=== PATIENT | male | born 1950 | race Native Hawaiian/Other Pacific Islander ===

== ENCOUNTER 2017-07-21 17:26 | Emergency (ER) | payer MEDICARE, OTHER ==
[2017-07-21 17:26] VITALS: BMI 29.7
[2017-07-21 17:29] VITALS: BP 149/77; PULSE 89; RESP 18; TEMP 98.1; O2SAT 100
[2017-07-21] MEDS ORDERED: Lidocaine 2% Inj (20ml) IJ STA (17:49)
[2017-07-21] MEDS ORDERED: TDAP Vaccine 0.5 mL Syr IM ONE (17:52)
--- NOTE | 2017-07-21 17:53 | ED PDOC ---
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 Pt reports, " machine fell on top of my leg". Laceration noted to Right lower leg. Otherwise, pt denies obvious deformity, weakness, sensory or vascular deficits to Right leg, denies any other active complaints related to injury. Appears comfortable in bed, not in any apparent distress. Past Medical History - Provider Review Nursing Documentation Reviewed: Yes - Travel History Have you recently traveled outside [place] w/in the past 3 mons?: No - Tetanus Immunization Tetanus Immunization: >10 years Ago - Past Medical History Past Medical History: No Previous - Psychiatric Hx Substance Use: No - Past Surgical History Past Surgical History: No Previous - Anesthesia Hx Anesthesia: No Hx Anesthesia Reactions: No Hx Malignant Hyperthermia: No - Suicidal Assessment Feels Threatened In Home Enviroment: No Family/Social History - Physician Review Nursing Documentation Reviewed: Yes Family/Social History: No Known Family HX Smoking Status: Never Smoked Hx Alcohol Use: No Hx Substance Use: No Hx Substance Use Treatment: No Allergies/Home Meds Allergies/Adverse Reactions: Allergies No Known Allergies Allergy (Verified 07/21/17 17:31) per patient Review of Systems - Physician Review All systems were reviewed & negative as marked: Yes - Review of Systems Constitutional: Normal Musculoskeletal: Arthralgias Skin: Laceration Neurological: Normal Endocrine: Normal Hemo/Lymphatic: Normal Psychiatric: Normal Physical Exam Vital Signs Reviewed: Yes Vital Signs Temp Pulse Resp BP Pulse Ox 07/21/17 17:28 98.1 F 89 18 149/77 100 Temperature: Afebrile Blood Pressure: Normal Pulse: Regular Respiratory Rate: Normal Appearance: Positive for: Well-Appearing, Non-Toxic, Comfortable Pain Distress: Mild Mental Status: Positive for: Alert and Oriented X 3 - Systems Exam Head: Present: Atraumatic, Normocephalic Lower Extremity: Present: NORMAL PULSES, Normal ROM, Tenderness (mid tibia, left ), Neurovascularly Intact (LLE), Capillary Refill < 2 s. No: Swelling, Deformity Neurological: Present: GCS=15, Speech Normal, Motor Func Grossly Intact, Normal Sensory Function, Norm Deep Tendon Reflexes Skin: Present: Warm, Dry, Normal Color, Laceration ((+)Right mid tibia laceration 8cm length irregular through dermis, mild bloody oozing noted. No wound FB, mild skin contusion. no wound draining.) Medical Decision Making ED Course and Treatment: 07/21/17 19:30 On re-evaluation, pt is afebrile, hemodynamicaly stable. Non-toxic. Ambulatory in ED with stable gait. RLE: complex laceration repaired w/sutures. no neurovascular deficits post- procedure. FAROM. Wound covered with abx cream topically and sterile dressing. xray review (-) fx or dislocation, no wound FB noted. Pt denies any other complaints c/w injury. Abx orally, tetanus given. Pt advised on wound care. Ref. to f/u with PMD in 2 days for re-eval. return to ED if any worsening or new changes. - RAD Interpretation Narrative RAD Interpretations (Text): 07/21/17 19:29 (-) acute fx or dislocation, no wound FB Radiology Orders: 07/21/17 17:49 TIBIA FIBULA RIGHT [RAD] Stat - Medication Orders Current Medication Orders: Discontinued Medications Amoxicillin/Clavulanate Potassium (Augmentin 875 Mg-125 Mg Tab) 1 tab PO STAT STA PRN Reason: Protocol Stop: 07/21/17 19:26 Last Admin: 07/21/17 19:42 Dose: 1 tab Lidocaine HCl (Lidocaine 2% 20ml Vial) 10 ml IJ ONCE STA Stop: 07/21/17 17:50 Tetanus/Reduced Diphtheria/Acell Pertussis (Boostrix Vaccine Inj) 0.5 ml IM .ONCE ONE Stop: 07/21/17 17:53 Last Admin: 07/21/17 18:08 Dose: 0.5 ml [facility] Immunization Data Document 07/21/17 18:08 LENARD (Rec: 07/21/17 18:09 LENARD [id number]) Immunization Data Vaccine Lot Number [id number] Vaccine Expiration Date 05/09/19 Site Given Left Deltoid Disposition/Present on Arrival - Present on Arrival Any Indicators Present on Arrival: No History of DVT/PE: No History of Uncontrolled Diabetes: No Urinary Catheter: No History of Decub. Ulcer: No History Surgical Site Infection Following: None - Disposition Have Diagnosis and Disposition been Completed?: Yes Diagnosis: Leg laceration, Contusion Disposition: HOME/ ROUTINE Disposition Time: 19:20 Patient Plan: Discharge Condition: STABLE Discharge Instructions (ExitCare): Care For Your Stitches (ED), Laceration (ED) , Contusion in Adults (ED) Additional Instructions: Keep Right leg elevated for 2-3 days, avoid prolong walking Avery wrap over the laceration for 2-3 days Clean wound with peroxide, covered with antibiotic cream daily Suture removal in 10 days Follow up with PMD in 2 days for wound check. Return to ED at any time if any worsening or new changes, sign of infection, or any other changes. Prescriptions: Amoxicillin/Clavulanate [Augmentin 875 MG-125 MG] 1 tab PO BID #14 tab Bacitracin OINT 1 applic TP BID #1 tube traMADol [Ultram] 50 mg PO TID #7 tab Referrals: Jermaine Pablo MD [Primary Care Provider] - Follow up with primary Forms: [employer] (Amharic), WORK NOTE Laceration - Laceration Repair Right lower leg Wound Length (In cm): 3.15 in Description Of Wound: Irregular, Contused Tissue (slight) Wound Cleansed With: Betadine Anesthesia: Lidocaine 2% Wound Examination: Irrigated With Saline, No FB With Wound Exploration, No Tendon Injury With Wound Exploration Wound Closure: Suture (#16) Suture Technique And Material Used: Nylon (3-0), Chromic (3-0#6) Wound Complexity: Complex
[2017-07-21] MEDS ORDERED: Amoxicillin-Clav 875-125 mg Tab PO STA (19:25)
--- NOTE | 2017-07-22 07:51 | RAD ---
PROCEDURE: Radiographs of the right tibia and fibula. HISTORY: injury COMPARISON: None available. TECHNIQUE: Frontal and lateral views obtained. FINDINGS: BONES: No fracture or destructive lesion. JOINT SPACES: Unremarkable. OTHER FINDINGS: Circumferential deformity of the soft tissues of the distal leg is identified potentially from a sock or other extrinsically compressing device appears small radiodensities are related to the medial soft tissues at this level and may be artifactual or related to the site. Clinically correlate. IMPRESSION: No fracture or suspicious lytic or blastic changes seen related to the right tibia or fibula. Soft tissue densities the medial distal soft tissues may related to a sock or other compressing device. Clinically correlate.
== END 2017-07-21 19:49 | disposition home or self-care (01) ==
LOC: ED 17:26
DX: S81.811A Laceration without foreign body, right lower leg, initial encounter (principal); T14.8 Other injury of unspecified body region; W20.8XXA Other cause of strike by thrown, projected or falling object, initial encounter; Z23 Encounter for immunization

== ENCOUNTER 2018-02-04 03:17 | Emergency (ER) | payer MEDICARE ==
--- NOTE | 2018-02-04 03:22 | ED PDOC ---
Arrival/HPI - General Time Seen by Provider: 02/04/18 03:18 Historian: Patient - History of Present Illness Narrative History of Present Illness (Text): 02/04/18 03:19 Taisha Cosme is a 67 year old male who presents to the Emergency department status post rapid response for syncope. 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 Rapid Response was called and patient was subsequently transferred to the Emergency room. Patient noted to have low blood pressure earlier during the episode, which has now improved. Patient notes he had a tooth extraction performed yesterday. Patient denies any fever, chills, chest pain, shortness of breath, nausea, vomiting, neck pain, headache, dizziness, or any other complaints. Symptom Onset: Sudden Symptom Course: Unchanged Activities at Onset: Light Context: Work Past Medical History - Provider Review Nursing Documentation Reviewed: Yes - Tetanus Immunization Tetanus Immunization: >10 years Ago - Past Medical History Past Medical History: No Previous - Psychiatric Hx Substance Use: No - Past Surgical History Past Surgical History: No Previous - Anesthesia Hx Anesthesia: No Hx Anesthesia Reactions: No Hx Malignant Hyperthermia: No - Suicidal Assessment Feels Threatened In Home Enviroment: No Family/Social History - Physician Review Nursing Documentation Reviewed: Yes Family/Social History: Unknown Family HX Smoking Status: Never Smoked Hx Alcohol Use: No Hx Substance Use: No Hx Substance Use Treatment: No Allergies/Home Meds Allergies/Adverse Reactions: Allergies No Known Allergies Allergy (Verified 02/04/18 03:22) per patient Home Medications: Home Meds Medication Instructions Recorded Confirmed No Known Home Med 02/04/18 02/04/18 Review of Systems - Physician Review All systems were reviewed & negative as marked: Yes - Review of Systems Constitutional: Normal. absent: Fevers Eyes: Normal ENT: Normal Respiratory: Normal. absent: SOB, Cough Cardiovascular: Syncope. absent: Chest Pain Gastrointestinal: Normal. absent: Abdominal Pain, Diarrhea, Nausea, Vomiting Genitourinary Male: Normal. absent: Dysuria, Frequency, Hematuria, Urinary Output Changes Musculoskeletal: Normal. absent: Back Pain, Neck Pain Skin: Normal. absent: Rash Neurological: Normal. absent: Headache, Dizziness Endocrine: Normal Hemo/Lymphatic: Normal Psychiatric: Normal Physical Exam Vital Signs Temp Pulse Resp BP Pulse Ox 02/04/18 03:20 97.7 F 68 18 130/76 100 Temperature: Afebrile Blood Pressure: Normal Pulse: Regular Respiratory Rate: Normal Appearance: Positive for: Well-Appearing, Non-Toxic, Comfortable Pain Distress: None Mental Status: Positive for: Alert and Oriented X 3 - Systems Exam Head: Present: Atraumatic, Normocephalic Pupils: Present: PERRL Extroacular Muscles: Present: EOMI Conjunctiva: Present: Normal Mouth: Present: Moist Mucous Membranes Neck: Present: Normal Range of Motion Respiratory/Chest: Present: Clear to Auscultation, Good Air Exchange. No: Respiratory Distress, Accessory Muscle Use Cardiovascular: Present: Regular Rate and Rhythm, Normal S1, S2. No: Murmurs Abdomen: No: Tenderness, Distention, Peritoneal Signs Back: Present: Normal Inspection Upper Extremity: Present: Normal Inspection. No: Cyanosis, Edema Lower Extremity: Present: Normal Inspection. No: Edema Neurological: Present: GCS=15, CN II-XII Intact, Speech Normal Skin: Present: Warm, Dry, Normal Color. No: Rashes Psychiatric: Present: Alert, Oriented x 3, Normal Insight, Normal Concentration Medical Decision Making ED Course and Treatment: 02/04/18 03:19 Impression: 67 year old male presents s/p rapid response for a syncopal episode tonight. Plan: -- CT Head w/o contrast -- EKG -- Chest X-ray -- Labs, cardiac enzymes -- UA -- Reassess and disposition Progress Notes: Reviewed EKG, NSR at [address]/T wave changes. 02/04/18 03:45 Chest X-ray reviewed, shows no acute processes. 02/04/18 05:11 CT Head shows: No intracranial hemorrhage. No extra axial collections. No intracranial edema. There is trace mucosal thickening in the ethmoid sinuses. There is a single lytic lesion in the right parietal bone series 3 image 52 measuring approximately 1.2 x 1.6 cm. There is an adjacent area of scarring within the subcutaneous fat raising the possibility that this is postprocedural in etiology. Normal variant of vascular etiology would be possible. The appearance could be consistent with eosinophilic granuloma although the patient' s age is older than typically seen. There is no associated soft tissue mass identified. Recommend correlation with priors if they exist. Otherwise short-term followup to assess for stability. No depressed fractures. IMPRESSION: No acute intracranial injury. Lytic area right parietal bone for which followup is recommended. 02/04/18 05:[address] findings. pt refuses admission signs AMA - Lab Interpretations Lab Results: 02/04/18 03:54 02/04/18 03:54 Lab Results 02/04/18 04:02: POC Glucose (mg/dL) 113 H 02/04/18 04:00: Urine Color Yellow, Urine Appearance Clear, Urine pH 6.0, Ur Specific [place] 1.025, Urine Protein Trace H, Urine Glucose (UA) Negative, Urine Ketones Trace H, Urine Blood Negative, Urine Nitrate Negative, Urine Bilirubin Negative, Urine Urobilinogen 0.2, Ur Leukocyte Esterase Negative, Urine RBC Pending, Urine WBC Pending 02/04/18 03:54: PT 10.9, INR 0.96, APTT 31.3 02/04/18 03:54: Sodium 141, Potassium 3.9, Chloride 104, Carbon Dioxide 31, Anion Gap 10, BUN 16, Creatinine 1.0, Est GFR ( Amer) > 60, Est GFR (Non- Af Amer) > 60, Random Glucose 116 H, Calcium 9.4, Magnesium 2.1, Total Bilirubin 1.1, AST 33, ALT 28, Alkaline Phosphatase 73, Lactate Dehydrogenase 437, Total Creatine Kinase 93, Troponin I < 0.01, Total Protein 7.5, Albumin 3.8 , Globulin 3.7, Albumin/Globulin Ratio 1.0 L 02/04/18 03:54: WBC 6.5, RBC 4.59, Hgb 13.8 L, Hct 40.7 L, MCV 88.7, MCH 30.1, MCHC 33.9, RDW 13.2, Plt Count 211, MPV 11.2 H, Gran % 52.2, Lymph % (Auto) 39.5 H, [place] % (Auto) 5.4, Eos % (Auto) 2.6, Baso % (Auto) 0.3, Gran # 3.40, Lymph # (Auto) 2.6, [place] # (Auto) 0.4, Eos # (Auto) 0.2, Baso # (Auto) 0.02 I have reviewed the lab results: Yes - RAD Interpretation Radiology Orders: 02/04/18 03:19 HEAD W/O CONTRAST [CT] Stat CHEST ONE VIEW [RAD] Stat Maintenance Technician: ED Physician, Radiologist - EKG Interpretation Interpreted by ED Physician: Yes Type: 12 lead EKG - Scribe Statement The provider has reviewed the documentation as recorded by the Scribmarcial Rasmussen Provider Scribe Attestation: All medical record entries made by the Scribe were at my direction and personally dictated by me. I have reviewed the chart and agree that the record accurately reflects my personal performance of the history, physical exam, medical decision making, and the department course for this patient. I have also personally directed, reviewed, and agree with the discharge instructions and disposition. Disposition/Present on Arrival - Present on Arrival Any Indicators Present on Arrival: No History of DVT/PE: No History of Uncontrolled Diabetes: No Urinary Catheter: No History Surgical Site Infection Following: None - Disposition Have Diagnosis and Disposition been Completed?: Yes Diagnosis: Syncope, Left against medical advice Disposition: AGAINST MEDICAL ADVICE Disposition Time: 05:40 Patient Problems: Current Active Problems Problem Status Onset Left against medical advice Acute Syncope Acute Condition: UNKNOWN Discharge Instructions (ExitCare): Syncope (Fainting), Syncope (ED) Additional Instructions: you are leaving against medical advice. you are able to return to any er with any concern at any point. Referrals: Jermaine Pablo MD [Primary Care Provider] - Follow up with primary Juan Diana MD [Staff Provider] - Follow up with primary Rayshawn Torres MD [Staff Provider] - Follow up with primary
[2018-02-04 03:23] VITALS: RESP 18; TEMP 97.7; BMI 27.4
--- NOTE | 2018-02-04 04:02 | PCM.RRT ---
<Germaine Stewart - Last Filed: 02/04/18 03:59> SENIOR DESIGNER/ART DIRECTOR Nurse Assessment - Situation Date: 02/04/18 Time SENIOR DESIGNER/ART DIRECTOR was called: 03:01 SENIOR DESIGNER/ART DIRECTOR Responder Arrival Time: 03:02 SENIOR DESIGNER/ART DIRECTOR Location:: Psychiatry Unit Room Number: [facility] SENIOR DESIGNER/ART DIRECTOR Reason for Call: Change in Mental Status SENIOR DESIGNER/ART DIRECTOR Called By: RN - IV IV Inserted during SENIOR DESIGNER/ART DIRECTOR?: No - Respiratory Oxygen Delivery Method: Nasal Cannula @L/min - Richardson Coma Scale Coma Scale Eye Opening: To verbal stimuli Coma Scale Motor: Obeys Commands Movement Coma Scale Verbal: Oriented - Vital Signs at end of SENIOR DESIGNER/ART DIRECTOR Vital Signs at end of SENIOR DESIGNER/ART DIRECTOR: HR 54, 53/31, POx 90. Accucheck BG 105. - Recommendations 5) SENIOR DESIGNER/ART DIRECTOR Level of Care Recommendations: Discharge to Emergency Room I.Reason for SENIOR DESIGNER/ART DIRECTOR - A) Acute Change in Patient: Subjective: PGY-[address] 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 RN heard a thump and found pt sitting on the floor leaning against the door frame. Pt said that he passed out. Pt had a tooth extraction today and took an alieve prior to the incident. Pt states that he had passed out in the past. No urinary incontinence. - Neurological Status (Select all that apply): Lethargic - Constitutional Appears: No Acute Distress Additional Comments: Diaphoresis with clammy skin - Head Head Exam: ATRAUMATIC, NORMAL INSPECTION, NORMOCEPHALIC - Eyes Eye Exam: EOMI, Normal appearance, PERRL. absent: Scleral icterus - Respiratory Exam Respiratory Exam: Clear to Ausculation Bilateral. absent: Rales, Rhonchi, Wheezes - Cardiovascular Exam Cardiovascular Exam: REGULAR RHYTHM, +S1, +S2 - Neurological Exam Neurological Exam: Alert, Awake, Oriented x3 Plan - Assessment of Findings&Treatment Plan Syncope likely secondary to hypotension with bradycardia - recheck vitals: HR 67, BP 72/42 - 2L O2 NC - transport to ED via stretcher. - ED accepted pt to bed ___ s/r/d/w Dr. Morales <Ajay Morales - Last Filed: 02/04/18 04:40> Attending/Attestation - Attestation I have personally seen and examined this patient.: Yes I have fully participated in the care of the patient.: Yes I have reviewed all pertinent clinical information, including history, physical exam and plan: Yes Notes (Text): 02/04/18 04:39 Agree with notes. CRITICAL CARE TIME SPENT 30 MINUTES.
[2018-02-04 05:04] LABS: ALBUMIN 3.8 g/dL (3.0-4.8); ALT/SGPT 28 U/L (7-56); AST/SGOT 33 U/L (17-59); BLOOD UREA NITROGEN 16 mg/dL (7-21); CALCIUM 9.4 mg/dL (8.4-10.5); GFR AFRICAN-AMERICAN > 60; GFR NON-AFRICAN AMERICAN > 60
--- NOTE | 2018-02-04 05:09 | CT ---
EXAM: CT Head Without Intravenous Contrast EXAM DATE/TIME: 02/04/2018 3:19 AM CLINICAL HISTORY: 67 years old, male; Signs and symptoms; Syncope and collapse TECHNIQUE: Axial computed tomography images of the head/brain without intravenous contrast. All CT scans at this facility use one or more dose reduction techniques, viz.: automated exposure control; ma/kV adjustment per patient size (including targeted exams where dose is matched to indication; i.e. head); or iterative reconstruction technique. Coronal and sagittal reformatted images were created and reviewed. COMPARISON: No relevant prior studies available. FINDINGS: No intracranial hemorrhage. No extra axial collections. No intracranial edema. There is trace mucosal thickening in the ethmoid sinuses. There is a single lytic lesion in the right parietal bone series 3 image 52 measuring approximately 1.2 x 1.6 cm. There is an adjacent area of scarring within the subcutaneous fat raising the possibility that this is postprocedural in etiology. Normal variant of vascular etiology would be possible. The appearance could be consistent with eosinophilic granuloma although the patient's age is older than typically seen. There is no associated soft tissue mass identified. Recommend correlation with priors if they exist. Otherwise short-term followup to assess for stability. No depressed fractures. IMPRESSION: No acute intracranial injury. Lytic area right parietal bone for which followup is recommended.
[2018-02-04 05:15] LABS: TROPONIN I < 0.01 ng/mL
[2018-02-04 05:16] LABS: BASO # 0.02 K/mm3 (0.0-2.0); BASO % 0.3 % (0.0-3.0); EOS # 0.2 (0.0-0.7); EOS % 2.6 % (1.5-5.0); GRAN # 3.4 (1.4-6.5); GRAN % 52.2 % (50.0-68.0); HEMOGLOBIN 13.8 g/dL (14.0-18.0); INR 0.96 (0.93-1.08); LYMPH # 2.6 (1.2-3.4); LYMPH % 39.5 % (22.0-35.0); MEAN CELL VOLUME 88.7 fl (80.0-105.0); MEAN CORPUSCULAR HEMOGLOBIN 30.1 pg (25.0-35.0); MEAN CORPUSCULAR HGB CONC 33.9 g/dl (31.0-37.0); MEAN PLATELET VOLUME 11.2 fl (7.0-11.0); MONO # 0.4 (0.1-0.6); MONO % 5.4 % (1.0-6.0); PARTIAL THROMBOPLASTIN TIME 31.3 Seconds (25.1-36.5); PROTHROMBIN TIME 10.9 SECONDS (9.4-12.5); RBC 4.59 10^6/uL (3.5-6.1); RED CELL DISTRIBUTION WIDTH 13.2 % (11.5-14.5); WHITE BLOOD COUNT 6.5 10^3/ul (4.5-11.0)
[2018-02-04 05:34] LABS: URINE BILIRUBIN NEGATIVE (NEGATIVE); URINE BLOOD NEGATIVE (NEGATIVE); URINE GLUCOSE (UA) NEGATIVE (NEGATIVE); URINE LEUKOCYTE ESTERASE NEGATIVE Leu/uL (NEGATIVE); URINE PROTEIN TRACE mg/dL (<30 mg/dL); URINE UROBILINOGEN 0.2 E.U./dL (<1 E.U./dL)
[2018-02-04 05:39] LABS: URINE APPEARANCE CLEAR (CLEAR); URINE COLOR YELLOW (YELLOW)
[2018-02-04 05:45] VITALS: BP 119/69; PULSE 70; O2SAT 97
[2018-02-04 06:16] LABS: URINE EPITHELIAL CELLS 0 - 2 /hpf (0-5); URINE RBC 0 - 2 /hpf (0-2); URINE WBC 0 - 2 /hpf (0-6)
[2018-02-04 06:17] LABS: URINE BACTERIA RARE (NEG); URINE HYALINE CAST 0 - 2 /hpf
--- NOTE | 2018-02-04 08:21 | RAD ---
PROCEDURE: CHEST RADIOGRAPH, 1 VIEW HISTORY: syncope COMPARISON: None available. FINDINGS: LUNGS: Clear. PLEURA: No pneumothorax or pleural fluid seen. CARDIOVASCULAR: Thoracic aorta ascending and descending components prominent - chronicity of this unknown. Aneurysmal dilatation not excluded. Heart size top normal OSSEOUS STRUCTURES: Thoracic spondylosis. VISUALIZED UPPER ABDOMEN: Normal. OTHER FINDINGS: None. IMPRESSION: No pulmonary pathology appreciated. Cardiomegaly. Prominent thoracic aorta - Hypertension 1 consideration. Thoracic aortic aneurysm not excluded. Consider CT chest if needed
--- NOTE | 2018-02-04 09:44 | CARD ---
APPROVED REPORT EKG Measurement Heart [id number] <Conclusion> Normal sinus rhythm Normal ECG
== END 2018-02-04 05:54 | disposition left against medical advice (07) ==
LOC: ED 03:17
DX: R55 Syncope and collapse (principal)

== ENCOUNTER 2018-04-30 07:58 | Emergency (ER) | payer MEDICARE ==
[2018-04-30 07:58] VITALS: BMI 27.4
[2018-04-30 08:10] VITALS: TEMP 98
[2018-04-30] MEDS ORDERED: Sodium Chloride 0.9% 1,000 ML IV STA (08:18)
[2018-04-30 08:33] LABS: BASO # 0.01 K/mm3 (0.0-2.0); BASO % 0.1 % (0.0-3.0); EOS % 0.1 % (1.5-5.0); GRAN # 8.22 (1.4-6.5); GRAN % 72.4 % (50.0-68.0); HEMOGLOBIN 14.5 g/dL (14.0-18.0); LYMPH # 2.6 (1.2-3.4); LYMPH % 22.6 % (22.0-35.0); MEAN CELL VOLUME 88.7 fl (80.0-105.0); MEAN CORPUSCULAR HEMOGLOBIN 30.5 pg (25.0-35.0); MEAN CORPUSCULAR HGB CONC 34.4 g/dl (31.0-37.0); MEAN PLATELET VOLUME 10.8 fl (7.0-11.0); MONO # 0.6 (0.1-0.6); MONO % 4.8 % (1.0-6.0); RBC 4.76 10^6/uL (3.5-6.1); WHITE BLOOD COUNT 11.4 10^3/ul (4.5-11.0)
--- NOTE | 2018-04-30 08:43 | ED PDOC ---
Arrival/HPI - General Historian: Patient - History of Present Illness Time/Duration: < week Symptom Onset: Gradual Symptom Course: Unchanged Quality: Aching - General Chief Complaint: Back Pain Time Seen by Provider: 04/30/18 08:07 - History of Present Illness Narrative History of Present Illness (Text): 04/30/18 08:36 Pt is a 67 yo M who presents to ED with left sided abdominal pain. Patient states that pain starts in the back and radiates anteriorly. Patient states that he has been constipated and his last normal BM was 5 days ago. Patient admits to nausea and vomiting. Patient denies melena, hematochezia, dysuria, hematuria, CP, SOB, diarrhea, fever, chills, SALTER, or dizziness. PMD: Luciano Nguyen) Past Medical History - Provider Review Nursing Documentation Reviewed: Yes - Infectious Disease Hx of Infectious Diseases: None - Tetanus Immunization Tetanus Immunization: >10 years Ago - Past Medical History Past Medical History: No Previous - Cardiac Hx Cardiac Disorders: Yes - Pulmonary Hx Respiratory Disorders: No - Neurological Hx Neurological Disorder: No - HEENT Hx HEENT Disorder: No - Renal Hx Renal Disorder: No - Endocrine/Metabolic Hx Endocrine Disorders: No - Hematological/Oncological Hx Blood Disorders: No - Integumentary Hx Dermatological Disorder: No - Musculoskeletal/Rheumatological Hx Musculoskeletal Disorders: No - Gastrointestinal Hx Gastrointestinal Disorders: No - Genitourinary/Gynecological Hx Genitourinary Disorders: No - Psychiatric Hx Psychophysiologic Disorder: No Hx Substance Use: No - Past Surgical History Past Surgical History: No Previous - Anesthesia Hx Anesthesia: No Hx Anesthesia Reactions: No Hx Malignant Hyperthermia: No - Suicidal Assessment Feels Threatened In Home Enviroment: No Family/Social History - Physician Review Nursing Documentation Reviewed: Yes Family/Social History: No Known Family HX Smoking Status: Never Smoked Hx Alcohol Use: No Hx Substance Use: No Hx Substance Use Treatment: No Allergies/Home Meds Allergies/Adverse Reactions: Allergies No Known Allergies Allergy (Verified 02/04/18 03:22) per patient Home Medications: Home Meds Medication Instructions Recorded Confirmed Simvastatin [Zocor] 04/30/18 Review of Systems - Review of Systems Constitutional: Normal Eyes: Normal ENT: Normal Respiratory: Normal Cardiovascular: Normal Gastrointestinal: Abdominal Pain, Constipation, Nausea, Vomiting. absent: Stool Changes, Diarrhea, Hematochezia, Hematemesis Genitourinary Male: Normal Musculoskeletal: Normal Skin: Normal Neurological: Normal Endocrine: Normal Hemo/Lymphatic: Normal Psychiatric: Normal Physical Exam Temperature: Afebrile Blood Pressure: Normal Pulse: Regular Respiratory Rate: Normal Appearance: Positive for: Uncomfortable Pain Distress: Moderate Mental Status: Positive for: Alert and Oriented X 3 - Systems Exam Head: Present: Atraumatic, Normocephalic Pupils: Present: PERRL Extroacular Muscles: Present: EOMI Conjunctiva: Present: Normal Mouth: Present: Moist Mucous Membranes Neck: Present: Normal Range of Motion Respiratory/Chest: Present: Clear to Auscultation, Good Air Exchange. No: Respiratory Distress, Accessory Muscle Use Cardiovascular: Present: Regular Rate and Rhythm, Normal S1, S2. No: Murmurs Abdomen: Present: Tenderness. No: Distention, Peritoneal Signs, Rebound, Guarding, McBurney's Point Tender, Rovsing's Sign Present, Hernias Back: Present: Normal Inspection, CVA Tenderness (left) Upper Extremity: Present: Normal Inspection. No: Cyanosis, Edema Lower Extremity: Present: Normal Inspection. No: Edema Neurological: Present: GCS=15, CN II-XII Intact, Speech Normal Skin: Present: Warm, Dry, Normal Color. No: Rashes Psychiatric: Present: Alert, Oriented x 3, Normal Insight, Normal Concentration Vital Signs Temp Pulse Resp BP Pulse Ox 04/30/18 11:32 69 18 122/67 99 04/30/18 11:31 69 18 122/67 99 04/30/18 10:03 72 18 130/72 96 04/30/18 08:09 98.0 F 79 17 152/90 H 98 Medical Decision Making ED Course and Treatment: 04/30/18 08:45 67 yo M presents to ED with left sided abdominal pain. Plan: - CBC, CMP - Coags - Lipase - CT abdomen/pelvis - IVF - Zofran - Tylenol - Reassess and disposition 04/30/18 10:50 CT abdomen/pelvis Impression: Mild left hydroureteronephrosis with perinephric stranding and a punctate 1-2 mm obstructive calculus at the left UVJ. 04/30/18 11:29 Labwork grossly normal. Results were discussed with patient. Advised patient to take Flomax and Motrin as needed, strain urine and follow up with PMD. Patient medically stable for discharge. (Luciano Carrero) 04/30/18 08:59 Patient Seen With Resident: In agreement with resident note which contains more details about the patient. Patient was seen and evaluated with resident. Came up with plan and treatment together.. 04/30/18 14:30 pt seenw yady hilletisai left flank pain ct shows small stone. pain resolved. no e/ o of uti sepsis. advise outpt fu and return precautions (Sharif Montaño) - Lab Interpretations Lab Results: 04/30/18 08:12 04/30/18 08:30 Lab Results 04/30/18 10:50: Urine Color Yellow, Urine Appearance Sl cloudy, Urine pH 6.0, Ur Specific [place] 1.015, Urine Protein Negative, Urine Glucose (UA) Negative, Urine Ketones Negative, Urine Blood Large H, Urine Nitrate Negative, Urine Bilirubin Negative, Urine Urobilinogen 0.2, Ur Leukocyte Esterase Negative, Urine RBC 20 - 25, Urine WBC 0 - 2, Ur Epithelial Cells 0 - 2, Urine Bacteria Few 04/30/18 08:30: Sodium 145, Potassium 3.9, Chloride 107, Carbon Dioxide 24, Anion Gap 17, BUN 15, Creatinine 1.3, Est GFR ( Amer) > 60, Est GFR (Non- Af Amer) 55, Random Glucose 117 H, Calcium 8.7, Magnesium 1.9, Total Bilirubin 1.0, AST 23, ALT 21, Alkaline Phosphatase 64, Total Protein 7.3, Albumin 3.9, Globulin 3.3, Albumin/Globulin Ratio 1.2, Lipase 57 04/30/18 08:12: PT 11.1, INR 0.97, APTT 28.4 04/30/18 08:12: WBC 11.4 H D, RBC 4.76, Hgb 14.5, Hct 42.2, MCV 88.7, MCH 30.5, MCHC 34.4, RDW 13.0, Plt Count 218, MPV 10.8, Gran % 72.4 H, Lymph % (Auto) 22.6 , [place] % (Auto) 4.8, Eos % (Auto) 0.1 L, Baso % (Auto) 0.1, Gran # 8.22 H, Lymph # (Auto) 2.6, [place] # (Auto) 0.6, Eos # (Auto) 0.0, Baso # (Auto) 0.01 - RAD Interpretation Radiology Orders: 04/30/18 08:12 ABD & PELVIS W/O PO OR IV CONT [CT] Stat - Medication Orders Current Medication Orders: Discontinued Medications Acetaminophen (Tylenol 325mg Tab) 975 mg PO STAT STA Stop: 04/30/18 08:15 Last Admin: 04/30/18 08:37 Dose: 975 mg Sodium Chloride (Sodium Chloride 0.9%) 1,000 mls @ 999 mls/hr IV .Q1H1M STA Stop: 04/30/18 09:18 Last Admin: 04/30/18 08:25 Dose: 999 mls/hr eMAR Start Stop Document 04/30/18 08:25 RD (Rec: 04/30/18 08:26 [id number] Intravenous Solution Start Date 04/30/18 Start Time 08:25 End Date 04/30/18 End time 09:25 Total Infusion Time 60 Ondansetron HCl (Zofran Inj) 4 mg IVP STAT STA Stop: 04/30/18 08:19 Last Admin: 04/30/18 08:26 Dose: 4 mg IVP Administration Document 04/30/18 08:26 RD (Rec: 04/30/18 08:26 [id number] Charges for Administration # of IVP Administrations 1 Ondansetron HCl (Zofran Inj) 4 mg IVP STAT STA Stop: 04/30/18 08:32 Last Admin: 04/30/18 08:37 Dose: 4 mg IVP Administration Document 04/30/18 08:37 RD (Rec: 04/30/18 08:37 [id number] Charges for Administration # of IVP Administrations 1 Disposition/Present on Arrival - Present on Arrival Any Indicators Present on Arrival: No History of DVT/PE: No History of Uncontrolled Diabetes: No Urinary Catheter: No History of Decub. Ulcer: No History Surgical Site Infection Following: None - Disposition Have Diagnosis and Disposition been Completed?: Yes Disposition Time: 11:30 Patient Plan: Discharge - Disposition Diagnosis: Nephrolithiasis Disposition: HOME/ ROUTINE Condition: STABLE Discharge Instructions (ExitCare): Kidney Stones (DC) Additional Instructions: 1. Follow up with PMD within 1 week 2. Take medications as prescribed 3. Strain urine for stone 4. Maintain hydration 5. Return to ED if symptoms worsen AMANDA LEWIS, thank you for letting us take care of you today. Your provider was Sharif Montaño DO and you were treated for ABDOMINAL PAIN. The emergency medical care you received today was directed at your acute symptoms. If you were prescribed any medication, please fill it and take as directed. It may take several days for your symptoms to resolve. Return to the Emergency Department if your symptoms worsen, do not improve, or if you have any other problems. Please contact your doctor or call one of the physicians/clinics you have been referred to that are listed on the Patient Visit Information form that is included in your discharge packet. Bring any paperwork you were given at discharge with you along with any medications you are taking to your follow up visit. Our treatment cannot replace ongoing medical care by a primary care provider outside of the emergency department. Thank you for allowing the [facility] team to be part of your care today. Prescriptions: Ibuprofen [Motrin] 600 mg PO TID PRN #15 tab PRN Reason: Pain, Moderate (4-7) Tamsulosin [Flomax] 0.4 mg PO DAILY #15 cap Referrals: Jermaine Pablo MD [Primary Care Provider] - Follow up with primary Forms: [employer] ([place]), WORK NOTE
[2018-04-30 08:44] LABS: INR 0.97 (0.93-1.08); PARTIAL THROMBOPLASTIN TIME 28.4 Seconds (25.1-36.5); PROTHROMBIN TIME 11.1 SECONDS (9.4-12.5)
[2018-04-30 09:02] LABS: ALB/GLOB RATIO 1.2 (1.1-1.8); ALBUMIN 3.9 g/dL (3.0-4.8); ALT/SGPT 21 U/L (7-56); AST/SGOT 23 U/L (17-59); BLOOD UREA NITROGEN 15 mg/dL (7-21); CALCIUM 8.7 mg/dL (8.4-10.5); GFR AFRICAN-AMERICAN > 60; GFR NON-AFRICAN AMERICAN 55; LIPASE 57 U/L (23-300)
[2018-04-30 10:03] VITALS: RESP 18
--- NOTE | 2018-04-30 10:42 | CT ---
PROCEDURE: CT Abdomen and Pelvis without intravenous contrast HISTORY: abdominal pain COMPARISON: None. TECHNIQUE: Technique. Contrast dose: Radiation dose: Total exam DLP = mGy-cm. This CT exam was performed using one or more of the following dose reduction techniques: Automated exposure control, adjustment of the mA and/or kV according to patient size, and/or use of iterative reconstruction technique. FINDINGS: LOWER THORAX: Unremarkable. LIVER: Unremarkable. No gross lesion or ductal dilatation. GALLBLADDER AND BILE DUCTS: Unremarkable. PANCREAS: Unremarkable. No gross lesion or ductal dilatation. SPLEEN: Unremarkable. ADRENALS: Unremarkable. No mass. KIDNEYS AND URETERS: Mild left hydroureteronephrosis with perinephric stranding and a punctate 1-2 millimeter obstructive calculus at the left UVJ. VASCULATURE: Unremarkable. No aortic aneurysm. BOWEL: Unremarkable. No obstruction. No gross mural thickening. APPENDIX: Unremarkable. Normal appendix. PERITONEUM: Unremarkable. No free fluid. No free air. LYMPH NODES: Unremarkable. No enlarged lymph nodes. BLADDER: Unremarkable. REPRODUCTIVE: Unremarkable. BONES: No acute fracture. OTHER FINDINGS: None. IMPRESSION: Mild left hydroureteronephrosis with perinephric stranding and a punctate 1-2 millimeter obstructive calculus at the left UVJ.
[2018-04-30 11:19] LABS: URINE BILIRUBIN NEGATIVE (NEGATIVE); URINE BLOOD LARGE (NEGATIVE); URINE GLUCOSE (UA) NEGATIVE (NEGATIVE); URINE LEUKOCYTE ESTERASE NEGATIVE Leu/uL (NEGATIVE); URINE PROTEIN NEGATIVE mg/dL (<30 mg/dL); URINE UROBILINOGEN 0.2 E.U./dL (<1 E.U./dL)
[2018-04-30 11:23] LABS: URINE APPEARANCE SL CLOUDY (CLEAR); URINE COLOR YELLOW (YELLOW)
[2018-04-30 11:32] VITALS: BP 122/67; PULSE 69; O2SAT 99
[2018-04-30 11:37] LABS: URINE BACTERIA FEW (NEG); URINE EPITHELIAL CELLS 0 - 2 /hpf (0-5); URINE RBC 20 - 25 /hpf (0-2); URINE WBC 0 - 2 /hpf (0-6)
== END 2018-04-30 11:42 | disposition home or self-care (01) ==
LOC: ED 07:58
DX: N20.0 Calculus of kidney (principal)
CPT/HCPCS: 74176; 80053; 81001; 83690; 83735; 85025; 85610; 85730; 96361; 96374; 99283; J2405; J7030